=== PATIENT | male | born 1960 | race African-American/Black ===

== ENCOUNTER → 2017-04-06 | Outpatient (CLI) | payer OTHER ==
--- NOTE | 2017-04-06 09:05 | RAD ---
Lumbar spine, 3 views, 04/06/2017: History: Low back pain and spasms The lumbar vertebral heights and intervertebral disc spaces are well-maintained. No fracture or dislocation is identified. There are only minimal scattered marginal spurs. There are mild sclerotic changes involving facet joints in the lower lumbar spine. There are several tiny radiopaque foreign bodies projected over the left lower paraspinous region, perhaps due to prior penetrating trauma. IMPRESSION: 1. Minimal degenerative change. 2. No acute bony abnormality is detected.
== END | disposition home or self-care (01) ==
LOC: RAD 08:14
PROVIDERS: ATTEND Internal Medicine Cardiovascular Disease
DX: M47.896 Other spondylosis, lumbar region (principal); R25.2 Cramp and spasm
CPT/HCPCS: 72100

== ENCOUNTER → 2017-04-10 | Outpatient (CLI) | payer OTHER ==
--- NOTE | 2017-04-10 10:36 | RAD ---
MRI of the lumbar spine without contrast 04/10/2017 Clinical history: Low back pain which radiates down the left leg for the last 2 weeks. TECHNIQUE: Unenhanced T1-weighted and T2-weighted sagittal and axial and inversion sagittal images of the lumbar spine were obtained. FINDINGS: Minimal S-shaped curvature of the thoracolumbar spine is seen. The morphology and signal characteristics of all of the disks of the lumbar spine are within normal limits. A 8 mm hemangioma is seen involving the L2 vertebral body. The conus medullaris is within normal limits in morphology, position, and signal characteristics. The L1-2 and L2-3 disc spaces are within normal limits. At the L3-4 disc space there is a mild generalized disc bulge. Degenerative changes are seen involving the facet joints bilaterally. There is moderate ligamentum flavum hypertrophy bilaterally. There is prominence of the posterior epidural fat. These findings when combined do not result in significant central spinal canal or neural foraminal stenosis. At the L4-5 and L5-S1 disc spaces there are mild generalized disc bulges. Degenerative changes are seen involving the facet joints bilaterally. There is mild ligamentum flavum hypertrophy bilaterally. These findings when combined result in very mild spinal canal stenosis. No neural foraminal stenosis is seen. IMPRESSION: The changes of degenerative disc disease are seen involving the mid and lower lumbar spine. These findings result in very mild central spinal canal stenosis at L4-5 and L5-S1. No neural foraminal stenosis is seen. Electronically signed by: Lucio Guerrero MD (04/10/2017 10:32 AM) [id number]
== END | disposition home or self-care (01) ==
LOC: MRI 09:50
PROVIDERS: ATTEND Family Medicine
DX: M48.061 Spinal stenosis, lumbar region without neurogenic claudication (principal); M51.36 Other intervertebral disc degeneration, lumbar region
CPT/HCPCS: 72148